=== PATIENT | male | born 1970 | race Caucasian/White ===

== ENCOUNTER 2018-09-10 09:15 | Emergency (ER) | payer MEDICARE, MEDICAID ==
[~2018-09-10] VITALS: Ht 147.3 cm; Wt 70.0 kg
[~2018-09-10 09:15] MED LIST: AMOXICILLIN500 MG PO; ATIVAN0.5 MG PO; BACTRIM DS1 TAB PO; CEPHALEXIN500 MG PO; DILT-XR120 MG PO; DILTIAZEM120 M1 PO; DILTIAZEM90 M1 PO; LOPRESSOR25 MG PO; LOSARTAN POT50 MG PO; NO HOME MEDS; NORCO1 TA1 PO; ULTRAM50 M1 PO
[2018-09-10 09:52] LABS: IMMATURE GRANULOCYTES 0.5 % (0.0-5.0); MEAN CORPUSCULAR HGB 32.1 pG CALC (26.0-32.0); MEAN CORPUSCULAR HGB CONC 34.2 g/L CALC (32.0-36.0); NEUT# 6.27 thou/uL (1.82-7.42); RED BLOOD COUNT 4.7 mill/uL (4.70-6.10)
[2018-09-10 09:53] LABS: HEMATOCRIT 44.2 % (39.0-50.0); HEMOGLOBIN 15.1 g/dl (14.0-18.0)
[2018-09-10 10:15] LABS: ALBUMIN 4.9 g/dL (3.2-5.0); BUN 14 mg/dL (9-20); BUN/CREATININE RATIO 20 (12-20 (CALC)); CHLORIDE 109 mmol/l (95-108); CREATININE 0.7 mg/dL (0.7-1.3); GFR > 60 ML/MIN (>=60 (CALC)); GFR FOR AFR.AMER. > 60 ML/MIN (>=60 (CALC)); SGOT/AST 28 u/l (17-59); SODIUM 144 mmol/l (137-146)
[2018-09-10 10:16] LABS: ALKALINE PHOSPHATASE 77 u/l (38-126); ANION GAP 19 (6-22 (CALC)); BILIRUBIN, TOTAL 0.8 mg/dL (0.0-1.4); CARBON DIOXIDE 20 mmol/l (22-30); TOTAL PROTEIN 8.8 g/dL (6.3-8.2)
[2018-09-10] MEDS ORDERED: NORVASC5 M1 PO (10:42)
[2018-09-10] MEDS ORDERED: ATENOLOL25 MG PO (10:43)
[2018-09-10 12:57] LABS: URINE BILIRUBIN - DIPSTICK NEGATIVE (NEGATIVE); URINE BLOOD DIPSTICK NEGATIVE (NEGATIVE); URINE COLOR YELLOW; URINE GLUCOSE - DIPSTICK NEGATIVE (NEGATIVE); URINE KETONE 15 mg/dL (NEGATIVE); URINE LEUK ESTERASE NEGATIVE (NEGATIVE); URINE NITRITE - DIPSTICK NEGATIVE (Negative); URINE PROTEIN - DIPSTICK NEGATIVE (NEG-TRACE); URINE UROBILINOGEN - DIPSTICK 0.2 E.U./dL (0.2)
[2018-09-10] MEDS ORDERED: MECLIZINE25 MG PO (13:29)
[2018-09-10] MEDS ORDERED: ONDANSETRON4 MG PO (13:29)
[2018-09-10 14:10] VITALS: BP 155/95
== END 2018-09-10 14:10 | disposition home or self-care (01) ==
LOC: ED 09:15
PROVIDERS: Family Medicine
DX: R42 Dizziness and giddiness (principal); R11.2 Nausea with vomiting, unspecified; R51 Headache; I10 Essential (primary) hypertension
CPT/HCPCS: Q9967